=== PATIENT | female | born 1935 | race Caucasian/White ===

== ENCOUNTER → 2018-03-24 | Outpatient (CLI) | payer MEDICARE, BC ==
[~2018-03-24] MED LIST: ACTONEL35 MG PO; ASPIRIN81 M2 PO; ATORVASTATIN CA20 MG PO; BIOTIN2500 MCG PO; CALCIUM600 M1 PO; FISH OIL 1,2001 EAC5 PO; GLUCOSAMINE H1500 MG; GLUCOSAMINE1000 MG PO; LYRICA75 MG PO; PANTOPRAZOLE SO40 MG PO; TIZANIDINE HCL4 M1 PO; VITAMIN C1000 MG PO; VITAMIN D-32000 UNIT PO; XARELTO10 MG PO; Z CRANBERRY PO; Z GLUCOSAMINE PO; Z.0.CENTRUM SILVER1 PO; Z.0.LYRICA200 MG PO; Z.0.MAGNESIUM250 MG PO; Z.0.MELOXICAM7.5 MG PO; Z.0.METOPROLOL SUCC2 PO; Z.0.SAVELLA50 MG PO; Z.0.SPIRONOLACTONE25 PO; Z.0.VITAMIN D1000 UN PO; [UNRECOGNIZED DRUG - OTHER] PO
--- NOTE | 2018-03-24 19:47 | Diagnostic Imaging Report ---
Examination: MRI SPINE THORACIC WITHOUT CONTRAST History: Back pain. Comparison studies: None Technique: Sagittal T1 and STIR; axial, sagittal and coronal T2 Intravenous contrast: None. Findings: Alignment: Normal kyphosis. No scoliosis. Thoracic cord: Normal in signal and morphology. The tip of the conus is at L1. Soft tissues: No T2 hyperintense inflammatory changes. Paraspinal muscles: Diffuse atrophy presumably from disuse. Vertebrae: No compression fractures, infection or neoplasm of the C4-T2 vertebrae. There is prior posterior fixation from T3 through L1. There is artifact from the hardware imaging evaluation of the cord and thecal sac. Degenerative changes: This is not able to be evaluated due to the hardware artifact. IMPRESSION: Posterior fixation of the thoracic spine. Hardware results in artifact limiting evaluation of the canal and its contents. Signed by: Dr. Carlene Markham M.D. on 03/24/2018 7:44 PM
--- NOTE | 2018-03-26 19:46 | Diagnostic Imaging Report ---
History: Pain Comparison studies: None Technique: Sagittal T1, T2 and IR, axial T2, T2 and gradient echo the cervical spine. T1, T2 and STIR, coronal and axial T2 thoracic spine Intravenous contrast: None Findings: Alignment: Slightly increased cervical lordosis. Normal thoracic kyphosis.No scoliosis. Cervicomedullary junction: No abnormalities. Patent foramen magnum. Soft tissues: No T2 hyperintense inflammatory changes. Postsurgical changes: Patient status post extensive thoracic posterolateral fusion. Hardware artifact prevent adequate evaluation of the spinal canal and of the spinal cord. Spinal cord: Normal in size and signal from the foramen magnum through the midthoracic region. Cannot adequately evaluate the cord or the canal from the mid thoracic region to the approximate location of the tip of the conus at T12-L1. Vertebrae: Normal in height and signal intensity in the cervical region. Grossly normal in height and thoracic region. No fractures, infection or neoplasm. Cervical degenerative changes: C2-C3: No abnormalities. C3-C4: Mildly degenerated disc. Moderate bilateral foraminal stenosis, right greater than left due to uncoarthrosis. Mild spinal canal stenosis due to a disc osteophyte complex. No disc herniation. C4-C5: Moderately degenerated disc. Severe bilateral foraminal stenosis due to uncoarthrosis. Moderate spinal canal stenosis due to a disc osteophyte complex. No disc herniation. C5-C6: Mildly degenerated disc. Moderate bilateral foraminal stenosis due to uncoarthrosis. Mild spinal canal stenosis due to a disc osteophyte complex. No disc herniation. C6-C7: Mildly degenerated disc. Foraminal stenosis, severe right, moderate left due to uncoarthrosis. Mild spinal canal stenosis due to a disc osteophyte. No disc herniation. C7-T1: No abnormalities. Thoracic degenerative changes: Patent spinal canal from T1 to approximately T7. Not possible to evaluate from T8 to approximately T11 to artifacts. Grossly patent to the tip of the conus at T12-L1. IMPRESSION: Cervical spine: 1. Degenerated discs from C3 to C7, worse at C4-5. 2. Degenerative spinal canal stenosis also from C3 to C7, is worse (moderate) at C5-6. 3. Significant foraminal stenosis from C3 to C7 is worse (severe) at C4-5 and on the right at C6-7. 4. No disc herniations. Thoracic spine: 1. Suboptimal study due to hardware artifacts from a posterolateral fusion throughout the thoracic region. 2. No gross fractures or spinal canal stenosis in spite of the artifact. 3. Cannot further evaluate. Signed by: Dr. Del Martinez M.D. on 03/26/2018 7:42 PM
== END ==
LOC: MRI 13:19
PROVIDERS: ATTEND Orthopaedic Surgery
DX: M54.2 Cervicalgia (principal); M54.6 Pain in thoracic spine
CPT/HCPCS: 72141; 72146

== ENCOUNTER → 2019-04-28 | Day surgery (SDC) | payer MEDICARE, BC ==
[2019-04-24 14:24] LABS: BASOPHILS % 0.6 % (0.0-1.0); EOSINOPHILS # (AUTO) 0.1 (0.0-0.4); EOSINOPHILS % 1.1 % (0.0-6.0); HEMATOCRIT 39.8 % (34.2-44.1); HEMOGLOBIN 12.4 g/dL (12.0-16.0); LYMPHOCYTES # (AUTO) 2.5 (1.0-3.2); LYMPHOCYTES % 37.6 % (18.0-39.1); MEAN CORPUSCULAR HEMOGLOBIN 24.9 pg (28-32); MEAN CORPUSCULAR HGB CONC 31.2 g/dL (31-35); MEAN CORPUSCULAR VOLUME 80.1 fL (81-99); MONOCYTES # (AUTO) 0.5 (0.2-0.8); NEUTROPHILS # (AUTO) 3.5 (2.1-6.9); NEUTROPHILS % 52.5 % (38.7-80.0); PLATELET COUNT 209 x10e3/uL (140-360); RED BLOOD COUNT 4.97 x10e6/uL (3.6-5.1); RED CELL DISTRIBUTION WIDTH 19.7 % (11.7-14.4)
[~2019-04-28] MED LIST changes: +COCONUT OIL1000 MG PO; +FENTANYL CITRATE/PF 100MCG/2 ML INJ ONE; +HYOSCYAMINE 0.125 MG TAB ONE; +MIDAZOLAM HCL 2 MG/2 ML VIAL ONE; +SIMETHICONE 40 MG/0.6 ML BTL ONE; +TYLENOL ARTHRITIS PO
[2019-04-28 09:35] VITALS: BP 125/86
--- NOTE | 2019-04-28 10:58 | Operative Report ---
DATE OF PROCEDURE: 04/28/2019 SURGEON: Jim Magaña MD PROCEDURES: 1. Esophagogastroduodenoscopy with biopsies. 2. Colonoscopy with polypectomy. INDICATIONS FOR EGD: Anemia, bloating. INDICATIONS FOR COLONOSCOPY: Surveillance colonoscopy, personal history of colon polyps, and anemia. MEDICATIONS: The patient was done under MAC, please see anesthesiologist's note. PROCEDURE IN DETAIL: With the patient in left lateral decubitus position, a flexible fiberoptic Olympus gastroscope was introduced into the esophagus under direct visualization without any difficulty. There was a minute tongue of velvety red mucosa noted to extend proximally from the GE junction and biopsies were obtained to rule out Silverio's. The scope was then advanced with ease into the stomach. Mucosa overlying the antrum and the body revealed some patchy areas of erythema and low grade to moderate edema. Several gastric ulcers were noted in the antrum up to 4 mm in size without active bleeding or stigmata of recent hemorrhage, biopsies were obtained. The pylorus was of normal contour and shape, it was intubated with ease and the scope was advanced all the way to the second portion of the duodenum. The scope was then withdrawn slowly and biopsies were obtained from the second portion of the duodenum as well as the duodenal bulb to rule out sprue. The scope was then withdrawn back into the stomach and retroflexed. Mucosa overlying the fundus and the cardia appeared to be within normal limits. The scope was then straightened out. The stomach was decompressed. The scope was subsequently withdrawn. The patient tolerated the procedure well. IMPRESSION: 1. Rule out Silverio esophagus. 2. Gastritis. 3. Gastric ulcers up to 4 mm in size without active bleeding or stigmata of recent hemorrhage. 4. Rule out sprue. PLAN: Follow up histology. Initiate Protonix 40 mg one p.o. q.a.m. a.c. The patient was then turned around and after adequate lubrication of the anal canal, a flexible fiberoptic Olympus colonoscope was inserted into the rectum with ease and advanced all the way to the cecum. The scope was then withdrawn slowly. Mucosa overlying the cecum, ascending colon, and transverse colon appeared to be within normal limits. Diverticular disease was noted to involve the distal descending and the sigmoid colon. Three polyps were hot biopsied from the sigmoid colon. Four polyps were hot biopsied from the rectum. The scope was then retroflexed into the distal rectum and small internal hemorrhoids were noted, none of which was actively bleeding. The scope was then straightened out, it was subsequently withdrawn. The patient tolerated the procedure well. IMPRESSION: 1. Diverticulosis. 2. Sigmoid colon polyps x3, hot biopsied. 3. Rectal polyps x4, hot biopsied. 4. Internal hemorrhoids, none actively bleeding. PLAN: Follow up histology. Initiate high-fiber, low-fat diet. Initiate high-fiber supplement. Timing of followup colonoscopy pending pathology report. Jim Magaña MD [facility]L /[id number] cc: Thai Davey MD
--- OUTSIDE RECORDS SUMMARY | 2019-04-28 11:17 | XMS REPORT | Clinical Summary ---
Author Author [facility] Organization [facility] Address Unknown Phone Unavailable Care Team Providers Care Apartment Locator Name Role Phone Geronimo Carter MD PCP Allergies Comments Active Allergy Reactions Severity Noted Date Cephalosporins Anaphylaxis High 02/05/2019 Codeine GI High 02/05/2019 Intolerance Morphine GI High 02/05/2019 Intolerance Penicillins Rash Low 02/05/2019 Medications End Date Status Medication Sig Dispensed Refills Start Date Active spironolactone Take 25 mg by 0 (ALDACTONE) 25 MG tablet mouth daily. Taking only 1/2 tablet daily Active atorvastatin (LIPITOR) 20 Take 20 mg by 0 MG tablet mouth daily. Default OP ins Active rivaroxaban (XARELTO) 15 Take 15 mg by 0 mg tablet mouth. Active risedronate (ACTONEL) 35 Take 35 mg by 0 MG tablet mouth every 7 days. with water on empty stomach, nothing by mouth or lie down for next 30 minutes. Active pregabalin (LYRICA) 150 Take 150 mg 0 MG capsule by mouth 2 (two) times a day. Active tiZANidine (ZANAFLEX) 4 Take 4 mg by 0 MG tablet mouth daily. Active vit B comp Take 1 tablet 0 no.5-nvene-D-biotin by mouth (NEPHRO-MICHELLE RX) 1-60-300 daily. mg-mg-mcg tablet Active biotin 5,000 mcg Take 5,000 0 tablet,disintegrating mcg by mouth daily. Active CALCIUM ACETATE ORAL Take 630 mg 0 by mouth daily. Active multivit-min/iron/folic/l Take 1 tablet 0 utein (CENTRUM SILVER by mouth WOMEN ORAL) daily. Active magnesium oxide 250 mg Take 250 mg 0 magnesium tablet by mouth daily. Active coconut oil 1,000 mg Take 2 0 capsule tablets by mouth daily. Active gluc jean/chondro jean A/vit Take 2 0 C/Mn (GLUCOSAMINE 1500 tablets by COMPLEX ORAL) mouth daily. Active acetaminophen (TYLENOL) Take 650 mg 0 325 MG tablet by mouth 2 (two) times a day. 02/06/2019 Discontinued spironolactone Take 12.5 mg 0 (ALDACTONE) 25 MG tablet by mouth daily. 02/06/2019 Discontinued atorvastatin (LIPITOR) 20 Take 20 mg by 0 MG tablet mouth nightly. Default OP ins 02/06/2019 Discontinued rivaroxaban (XARELTO) 15 Take 15 mg by 0 mg tablet mouth nightly. 02/06/2019 Discontinued risedronate (ACTONEL) 35 Take 35 mg by 0 MG tablet mouth every 7 days. with water on empty stomach, nothing by mouth or lie down for next 30 minutes. 02/06/2019 Discontinued pregabalin (LYRICA) 100 Take 150 mg 0 MG capsule by mouth 2 (two) times a day. 02/06/2019 Discontinued tiZANidine (ZANAFLEX) 4 Take 4 mg by 0 MG tablet mouth every evening. 02/16/2019 Discontinued ASCORBIC ACID, VITAMIN C, Take 5,000 mg 0 ORAL by mouth daily. 02/16/2019 Discontinued calcium carbonate-vitamin Take 5,000 0 D3 1,000 mg(2,500 mg)-800 tablets by unit tablet mouth daily. 02/21/2019 ciprofloxacin (CIPRO) 500 Take 1 tablet 10 tablet 0 201 MG tablet (500 mg 9 total) by mouth every 12 (twelve) hours for 5 days. Active Problems Problem Noted Date Sick sinus syndrome 02/15/2019 Encounters Care Team Description Date Type Specialty Chris Apodaca MD EP PACEMAKER INSERTION NEW OR REPLACEMENT [55502 (CPT)] 02/15/2019 Surgery Procedural Cardiology Chris Apodaca MD Sick sinus syndrome (HCC) 02/15/2019 Hospital Cardiology - Encounter 02/16/2019 Osman Vega Back pain, unspecified back location, unspecified back pain laterality, unspecified chronicity (Primary Dx) 10/23/2018 Office Visit Orthopedic Surgery after 04/27/2018 Social History Date Tobacco Use Types Packs/Day Years Used Never Smoker Smokeless Tobacco: Never Used Sex Assigned at Date Recorded Not on file Industry Job Start Date Occupation Not on file Not on file Not on file Travel End Travel History Travel Start No recent travel history available. Last Filed Vital Signs Time Taken Vital Sign Reading 02/16/2019 8:45 AM CDT Blood Pressure 133/60 02/16/2019 8:45 AM CDT Pulse 60 02/16/2019 3:15 AM CDT Temperature 36.3 C (97.4 F) 02/16/2019 8:45 AM CDT Respiratory Rate 20 02/16/2019 8:45 AM CDT Oxygen Saturation 95% - Inhaled Oxygen - Concentration 02/15/2019 7:51 AM CDT Weight 72.2 kg (159 lb 1 oz) 02/15/2019 7:51 AM CDT Height 162.6 cm (5' 4") 02/15/2019 7:51 AM CDT Body Mass Index 27.3 Plan of Treatment Care Team Description Date Type Specialty Gary Osman TeshaJames [address] [place] [address] [place] [id number] 07/23/2019 Office Visit Orthopedic Surgery Health Maintenance Due Date Last Done Comments SHINGLES VACCINES (#1) 1987 65+ PNEUMOCOCCAL VACCINE 2002 07/18/2010 (2 of 2 - PPSV23) INFLUENZA VACCINE 05/17/2019 07/15/2015, 08/13/2014, 07/17/2013, Additional history exists Implants Device Identifier Shelf Expiration Date Model / Serial / Lot Implanted Type Area Manufactur er [id number] / / Glenny Xt Sr Mri - [id number] Cardiac N/A: N/A [employer] Implanted: Qty: 1 on 02/15/2019 by Pacemaker CRM [facility], Chris Apodaca MD [employer] 11/16/2020 LEAD [id number] / [id number] / [id number] Lead Pace Trnsvns Actv-Fxtn Atrl Cardiac N/A: N/A [employer] Satya Bipolar 52cm - [id number] Pacing [place] - Implanted: 02/15/2019 (Quantity not Leads or CARDIAC on file) Electrodes RYHTYM or MGMT Accessorie s Procedures Comments Procedure Name Priority Date/Time Associated Diagnosis ECG PRE/POST OP Routine 02/16/2019 3:06 AM CDT XR CHEST 1 VW PORTABLE Routine 02/15/2019 4:11 PM CDT ECG PRE/POST OP Routine 02/15/2019 3:14 PM CDT CV VENOGRAPHY EXTREMITY Routine 02/15/2019 Sick sinus syndrome (HCC) BILATERAL 2:40 PM CDT EP PACEMAKER INSERTION Routine 02/15/2019 Sick sinus syndrome (HCC) NEW OR REPLACEMENT 2:40 PM CDT ESTIMATED GFR STAT 02/15/2019 8:10 AM CDT BASIC METABOLIC PANEL STAT 02/15/2019 8:10 AM CDT PARTIAL THROMBOPLASTIN STAT 02/15/2019 TIME (PTT) 8:10 AM CDT PROTHROMBIN TIME WITH INR STAT 02/15/2019 8:10 AM CDT HC COMPLETE BLD COUNT STAT 02/15/2019 W/AUTO DIFF 8:10 AM CDT ECG 12-LEAD STAT 02/15/2019 8:04 AM CDT XR SPINE SCOLIOSIS 2-3 Routine 10/23/2018 Back pain, unspecified VIEWS 1:40 PM [employer] back location, unspecified back pain laterality, unspecified chronicity after 04/27/2018 Results * ECG Pre/Post Op (02/16/2019 3:06 AM CDT) Only the most recent of 2 results within the time period is included. Ventricular 60 [facility] rate Atrial rate 131 [facility] QRSD interval 156 [facility] QT interval 502 [facility] QTC interval 502 [facility] QRS axis 1 -89 [facility] T wave axis 17 [facility] EKG impression Ventricular-paced [facility] MUSE rhythm-Abnormal ECG-In automated comparison with ECG of 15-FEB-2019 15:14,-Vent. rate has decreased BY 10 BPM- Specimen Narrative Performed At Performing Organization Address City/State/Zipcode Phone Number [facility] [address] [place] [address] * XR Chest 1 Vw Portable (02/15/2019 4:11 PM CDT) Specimen Narrative Performed At Examination:XR CHEST 1 VW PORTABLE [facility] Clinical history:"pacemaker insertion" Comparison:11/19/2015 IMPRESSION: Cardiac pacer is again seen. There are no new alveolar opacities within either lung.No pneumothoraces are identified. The cardiomediastinal silhouette is enlarged and unchanged. The bones of the chest are osteopenic. Right humeral anchors are present. [facility]-[id number] Procedure Note Interface, Radiology Results Incoming - 02/15/2019 4:32 PM CDT Examination: XR CHEST 1 VW PORTABLE Clinical history: "pacemaker insertion" Comparison: 11/19/2015 IMPRESSION: Cardiac pacer is again seen. There are no new alveolar opacities within either lung. No pneumothoraces are identified. The cardiomediastinal silhouette is enlarged and unchanged. The bones of the chest are osteopenic. Right humeral anchors are present. [facility]-[id number] Performing Organization Address City/[facility]/Zipcode Phone Number [facility] [address] [place] [address] * Cv invasive peripheral vascular procedure (02/15/2019 2:40 PM CDT) Specimen Narrative Performed At [facility] Sterile technique , 1 % xylocaine Left subclavian vein entered with assistance of venography, wire retained Subcu pocket created for pacemaker with sharp and blunt dissection. Pocket flushed with ATB soln. and packed with gauze Left subclavian vein entered a second time and wire retained Sheaths placed over wires and leads placed via sheaths RVlead in RV , RA lead in RAA Appropriate sensing and pacing confirmed Leads sewn in place Gauze removed from pocket Generator attached to leads Generator and leads placed in pocket. Generator sewn in place Pocket closed with deep interrupted sutures and the running subcu suture used to close incision. Incision dressed Patient to recovery in stable condition Performing Organization Address [facility] Phone Number [facility] [address] [place] [address] * Cv electrophysiology procedure (02/15/2019 2:40 PM CDT) Specimen Narrative Performed At [facility] Sterile technique , 1 % xylocaine Left subclavian vein entered with assistance of venography, wire retained Subcu pocket created for pacemaker with sharp and blunt dissection. Pocket flushed with ATB soln. and packed with gauze Left subclavian vein entered a second time and wire retained Sheaths placed over wires and leads placed via sheaths RVlead in RV , RA lead in RAA Appropriate sensing and pacing confirmed Leads sewn in place Gauze removed from pocket Generator attached to leads Generator and leads placed in pocket. Generator sewn in place Pocket closed with deep interrupted sutures and the running subcu suture used to close incision. Incision dressed Patient to recovery in stable condition Performing Organization Address [facility] Phone Number [facility] [address] [place] [address] * Estimated GFR (02/15/2019 8:10 AM CDT) Estimated GFR 82 mL/min/1.73 m2 [place] Comment: [facility] rpretation G1 >=90 Normal or high G2 60-89Mildly decreased [id number] Mildly to moderately decreased [id number] Moderately to severely decreased G4 15-29Severely decreased G5 <15Kidney failure The eGFR was calculated using the Chronic Kidney Disease Epidemiology Collaboration (CKD-EPI) equation. Interpretation is based on recommendations of the National Kidney Foundation-Kidney Disease Outcomes Quality Initiative (NKF-KDOQI) published in 2014. Specimen Plasma specimen Performing Organization Address [facility]/Zipcode Phone Number [facility] DEPARTMENT OF [address] [place] [id number] PATHOLOGY AND GENOMIC MEDICINE [place] [facility] * Partial thromboplastin time, activated (02/15/2019 8:10 AM CDT) PTT 36.2 (H) 23.0 - 36.0 sec [place] Comment: [facility] PTT therapeutic range for HOSPITAL unfractionated heparin is 61.0-112.0 seconds which corresponds to Anti-Xa 0.3-0.7 U/ml. Specimen Blood Performing Organization Address City/State/Zipcode Phone Number [facility] DEPARTMENT OF [address] [place] [address] PATHOLOGY AND GENOMIC MEDICINE [address] * Prothrombin time with INR (02/15/2019 8:10 AM CDT) Pathologist [facility] Prothrombin 14.6 (H) 11.5 - 14.5 sec [facility] INR 1.2 [place] Comment: [facility] The International Normalized HOSPITAL Ratio (INR) is a therapeutic monitoring tool for patients who are stable on oral anticoagulant therapy. An INR of 2.0-3.0 is suggested for deep vein thrombosis/pulmonary embolism. Specimen Blood Performing Organization Address City/[facility] Phone Number [facility] [address] PATHOLOGY AND GENOMIC MEDICINE [address] * CBC with platelet and differential (02/15/2019 8:10 AM CDT) [facility] WBC 5.39 4.50 - 11.00 k/uL [facility] RBC 4.83 4.20 - 5.50 m/uL [facility] HGB 11.0 (L) 12.0 - 16.0 g/dL [facility] HCT 37.0 37.0 - 47.0 % [facility] MCV 76.6 (L) 82.0 - 100.0 fL [facility] MCH 22.8 (L) 27.0 - 34.0 pg [facility] MCHC 29.7 (L) 31.0 - 37.0 g/dL [facility] RDW - SD 63.4 (H) 37.0 - 55.0 fL [facility] MPV 9.9 8.8 - 13.2 fL [facility] Platelet count 205 150 - 400 k/uL [facility] Nucleated RBC 0.00 /100 WBC [facility] Neutrophils 52.4 39.0 - 69.0 % [facility] Lymphocytes 38.0 25.0 - 45.0 % [facility] Monocytes 7.2 0.0 - 10.0 % [facility] Eosinophils 1.5 0.0 - 5.0 % [facility] Basophils 0.7 0.0 - 1.0 % [facility] Immature 0.2Comment: "Immature 0.0 - 1.0 % [place] granulocytes granulocytes" (promyelocytes, [facility] myelocytes, metamyelocytes) HOSPITAL Specimen Blood Performing Organization Address City/[facility] Phone Number [facility] [address] PATHOLOGY AND GENOMIC MEDICINE [address] * Basic metabolic panel (02/15/2019 8:10 AM CDT) [facility] Sodium 141 135 - 148 mEq/L [facility] Potassium 4.2 3.5 - 5.0 mEq/L [facility] Chloride 105 98 - 112 mEq/L [facility] CO2 24 24 - 31 mEq/L [facility] Anion gap 12@ANIO 7 - 15 mEq/L [facility] BUN 16 8 - 23 mg/dL [facility] Creatinine 0.67 0.50 - 0.90 mg/dL [facility] Glucose 88 65 - 99 mg/dL [facility] Calcium 9.1 8.8 - 10.2 mg/dL [facility] Specimen Plasma specimen Performing Organization Address City/[facility] Phone Number [facility] [address] PATHOLOGY AND [facility] MEDICINE [address] * ECG 12 lead (02/15/2019 8:04 AM CDT) Ventricular 52 [facility] rate Atrial rate 340 [facility] QRSD interval 84 [facility] QT interval 454 [facility] QTC interval 422 [facility] QRS axis 1 -54 [facility] T wave axis 15 [facility] EKG impression Atrial fibrillation with slow [facility] ventricular response-Left anterior fascicular block-Inferior infarct (cited on or before 20-AUG-2014)-Anterior infarct (cited on or before 20-AUG-2014)-Abnormal ECG-In automated comparison with ECG of 11-NOV-2014 09:56,-Atrial fibrillation has replaced Atrial flutter- Specimen Narrative Performed At Performing Organization Address [facility]/Zipcode Phone Number [facility] MUSE [address] [place] [address] * XR Spine Scoliosos 2-3 Views (10/23/2018 1:40 PM [employer] INST[employer]ER) Specimen Narrative Performed At [facility] PA and lateral of the entire spine were done.They show that she has instrumentation in place from T4 to the sacrum and pelvis.She does have a fracture between L4 and S1 on the left side of her primary karina.It has not moved.She does have a satellite karina that appears to still be intact. 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 Performing Organization Address [facility]/Zipcode Phone Number [facility] [address] [place] [address] after 04/27/2018 Insurance Type Payer Benefit Subscriber ID Effective Phone Address Plan / Dates Group Medicare MEDICARE MEDICARE xxxxxxxxxxx 2002- J[place], PART A AND Present [place] B PPO BCBS BCBS xxxxxxxxx [id number] CHOICE resent PPO/CHARLENE HEMPHILL PPO Advance Directives Patient has advance care planning documents on file. For more information, bruce chaudhry contact: Javier Lira [address] [place] [address]
--- OUTSIDE RECORDS SUMMARY | 2019-04-28 11:18 | XMS REPORT ---
Author Author [facility] Address Unknown Phone Unavailable Care Team Providers Care Staff Attorney Name Role Phone Tesha HUGGINS Unavailable Unavailable Problems This patient has no known problems. Allergies, Adverse Reactions, Alerts This patient has no known allergies or adverse reactions. Medications This patient has no known medications. Results Test Description Test Time Test Comments Text Results Atomic Results Result Comments MRI SPINE THORACIC WO 2018-03-24 19:38:00 [place] [address] Patient Name: FANNY BALDERRAMA MR #: [id number] : 1935 Age/Sex: 82/F Req #: [id number] [facility] Physician: Ordered by: SAMM HUGGINS MD Report #: [id number] Location: MRI Room/Bed: Procedure: [id number] MRI/MRI SPINE THORACIC WO Exam Date: Exam Time: REPORT STATUS: Signed Examination: MRI SPINE THORACIC WITHOUT CONTRAST History: Back pain. Comparison studies: None Technique: Sagittal T1 and STIR; axial, sagittal and coronal T2 Intravenous contrast: None. Findings: Alignment: Normal kyphosis. No scoliosis. Thoracic cord: Normal in signal and morphology. The tip of the conus is at L1. Soft tissues: No T2 hyperintense inflammatory changes. Paraspinal muscles: Diffuse atrophy presumably from disuse. Vertebrae: No compression fractures, infection or neoplasm of the C4-T2 vertebrae. There is prior posterior fixation from T3 through L1. There is artifact from the hardware imaging evaluation of the cord and thecal sac. Degenerative changes: This is not able to be evaluated due to the hardware artifact. IMPRESSION: Posterior fixation of the thoracic spine. Hardware results in artifact limiting evaluation of the canal and its contents. Signed by: Dr. Carlene Markham M.D. on 03/24/2018 7:44 PM Dictated By: CARLENE SHIRLEY MD 43 Transcribed By: TRAMAINE on 03/24/181943 COPY TO: SAMM HUGGINS MD MRI SPINE CERVICAL WO 2018-03-24 16:32:00 [place] [address] Patient Name: FANNY BALDERRAMA MR #: [id number] : 1935 Age/Sex: 82/F Req #: [id number] Adm Physician: Ordered by: SAMM HUGGINS MD Report #: [id number] Location: MRI Room/Bed: Procedure: [id number] MRI/MRI SPINE CERVICAL WO Exam Date: Exam Time: REPORT STATUS: Signed History: Pain Comparison studies: None Technique: Sagittal T1, T2 and IR, axial T2, T2 and gradient echo the cervical spine. T1, T2 and STIR, coronal and axial T2 thoracic spine Intravenous contrast: None Findings: Alignment: Slightly increased cervical lordosis. Normal thoracic kyphosis.No scoliosis. Cervicomedullary junction: No abnormalities. Patent foramen magnum. Soft tissues: No T2 hyperintense inflammatory changes. Postsurgical changes: Patient status post extensive thoracic posterolateral fusion. Hardware artifact prevent adequate evaluation of the spinal canal and of the spinal cord. Spinal cord: Normal in size and signal from the foramen magnum through the midthoracic region. Cannot adequately evaluate the cord or the canal from the mid thoracic region to the approximate location of the tip of the conus at T12-L1. Vertebrae: Normal in height and signal intensity in the cervical region. Grossly normal in height and thoracic region. No fractures, infection or neoplasm. Cervical degenerative changes: C2-C3: No abnormalities. C3-C4: Mildly degenerated disc. Moderate bilateral foraminal stenosis, right greater than left due to uncoarthrosis. Mild spinal canal stenosis due to a disc osteophyte complex. No disc herniation. C4-C5: Moderately degenerated disc. Severe bilateral foraminal stenosis due to uncoarthrosis. Moderate spinal canal stenosis due to a disc osteophyte complex. No disc herniation. C5-C6: Mildly degenerated disc. Moderate bilateral foraminal stenosis due to uncoarthrosis. Mild spinal canal stenosis due to a disc osteophyte complex. No disc herniation. C6-C7: Mildly degenerated disc. Foraminal stenosis, severe right, moderate left due to uncoarthrosis. Mild spinal canal stenosis due to a disc osteophyte. No disc herniation. C7-T1: No abnormalities. Thoracic degenerative changes: Patent spinal canal from T1 to approximately T7. Not possible to evaluate from T8 to approximately T11 to artifacts. Grossly patent to the tip of the conus at T12-L1. IMPRESSION: Cervical spine: 1. Degenerated discs from C3 to C7, worse at C4-5. 2. Degenerative spinal canal stenosis also from C3 to C7, is worse (moderate) at C5-6. 3. Significant foraminal stenosis from C3 to C7 is worse (severe) at C4-5 and on the right at C6-7. 4. No disc herniations. Thoracic spine: 1. Suboptimal study due to hardware artifacts from a posterolateral fusion throughout the thoracic region. 2. No gross fractures or spinal canal stenosis in spite of the artifact. 3. Cannot further evaluate. Signed by: Dr. Del Martinez M.D. on 03/26/2018 7:42 PM Dictated By: DEL MARTINEZ MD, MD 41 Transcribed By: TRAMAINE on 03/26/181941 COPY TO: SAMM HUGGINS MD
--- OUTSIDE RECORDS SUMMARY | 2019-04-30 15:16 | XMS REPORT | Clinical Summary ---
Author Author [facility] Address Unknown Phone Unavailable Care Team Providers Care Tender Coordinator Name Role Phone Geronimo Carter MD PCP [...] vit B comp Take 1 tablet 0 no.8-qfrqm-P-biotin by mouth (NEPHRO-MICHELLE RX) 1-60-300 daily. mg-mg-mcg [...] MD EP PACEMAKER INSERTION NEW OR REPLACEMENT [63523 (CPT)] 02/15/2019 Surgery Procedural Cardiology Chris Apodaca MD Sick sinus syndrome (HCC) 02/15/2019 Hospital Cardiology - Encounter 02/16/2019 Osman Vega Back pain, unspecified back location, unspecified back pain laterality, unspecified chronicity (Primary Dx) 10/23/2018 Office Visit Orthopedic Surgery after 04/29/2018 Social History Date Tobacco Use Types Packs/Day [...] Description Date Type Specialty Gary Osman TeshaJames [address] [place] [address] [place] [id number] 07/23/2019 Office Visit Orthopedic Surgery Health Maintenance Due Date Last Done Comments SHINGLES VACCINES (#1) 1987 65+ PNEUMOCOCCAL VACCINE 2002 07/18/2010 (2 of 2 - PPSV23) INFLUENZA VACCINE 05/17/2019 07/15/2015, 08/13/2014, 07/17/2013, Additional history exists Implants Device Identifier Shelf Expiration Date Model / Serial / Lot Implanted Type Area Manufactur er [id number] / / Glenny Xt Sr Mri - [id number] Cardiac N/A: N/A [employer] Implanted: Qty: 1 on 02/15/2019 by Pacemaker CRM [facility], Chris Apodaca MD [employer] 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 Ventricular 60 [facility] rate Atrial rate 131 [facility] QRSD interval 156 [facility] QT interval 502 [facility] QTC interval 502 [facility] QRS axis 1 -89 [facility] T wave axis 17 [facility] EKG impression Ventricular-paced [facility] MUSE rhythm-Abnormal ECG-In automated comparison with ECG of 15-FEB-2019 15:14,-Vent. rate has decreased BY 10 BPM- Specimen Narrative Performed At Performing Organization Address City/State/Zipcode Phone Number [facility] [address] [place] [address] * XR Chest 1 Vw Portable (02/15/2019 4:11 PM CDT) Specimen Narrative Performed At Examination:XR CHEST 1 VW PORTABLE [facility] Clinical history:"pacemaker insertion" Comparison:11/19/2015 IMPRESSION: Cardiac pacer is again seen. There are no new alveolar opacities within either lung.No pneumothoraces are identified. The cardiomediastinal silhouette is enlarged and unchanged. The bones of the chest are osteopenic. Right humeral anchors are present. [facility]-[id number] Procedure Note Interface, Radiology Results Incoming - 02/15/2019 4:32 PM CDT Examination: XR CHEST 1 VW PORTABLE Clinical history: "pacemaker insertion" Comparison: 11/19/2015 IMPRESSION: Cardiac pacer is again seen. There are no new alveolar opacities within either lung. No pneumothoraces are identified. The cardiomediastinal silhouette is enlarged and unchanged. The bones of the chest are osteopenic. Right humeral anchors are present. [facility]-[id number] Performing Organization Address City/[facility]/Zipcode Phone Number [facility] [address] [place] [address] * Cv invasive peripheral vascular procedure (02/15/2019 [...] recovery in stable condition Performing Organization Address [facility] Phone Number [facility] [address] [place] [address] * Cv electrophysiology procedure (02/15/2019 2:40 PM CDT) Specimen Narrative Performed At [facility] Sterile technique , 1 % xylocaine Left [...] recovery in stable condition Performing Organization Address [facility] Phone Number [employer] [address] [place] [address] * Estimated GFR (02/15/2019 8:10 AM CDT) Estimated GFR 82 mL/min/1.73 m2 [place] Comment: CAODAISM [facility] rpretation G1 >=90 Normal or high G2 60-89Mildly decreased A6d19-08 Mildly to moderately decreased X4b49-99 Moderately to severely decreased G4 15-29Severely decreased G5 <15Kidney failure The eGFR was calculated using the Chronic Kidney Disease Epidemiology Collaboration (CKD-EPI) equation. Interpretation is based on recommendations of the National Kidney Foundation-Kidney Disease Outcomes Quality Initiative (NKF-KDOQI) published in 2014. Specimen Plasma specimen Performing Organization Address [facility]/Zipcode Phone Number [facility] DEPARTMENT OF [address] [place] [address] PATHOLOGY AND GENOMIC MEDICINE [place] [address] * Partial thromboplastin time, activated (02/15/2019 8:10 AM CDT) PTT 36.2 (H) 23.0 - 36.0 sec [place] Comment: CAODAISM PTT therapeutic range for HOSPITAL unfractionated heparin is 61.0-112.0 seconds which corresponds to Anti-Xa 0.3-0.7 U/ml. Specimen Blood Performing Organization Address City/State/Zipcode Phone Number [facility] DEPARTMENT OF [address] [place] [address] PATHOLOGY AND GENOMIC MEDICINE [address] * Prothrombin time with INR (02/15/2019 8:10 AM CDT) Pathologist [facility] Prothrombin 14.6 (H) 11.5 - 14.5 sec [facility] INR 1.2 [place] Comment: CAODAISM The International Normalized HOSPITAL Ratio (INR) is a therapeutic monitoring tool for patients who are stable on oral anticoagulant therapy. An INR of 2.0-3.0 is suggested for deep vein thrombosis/pulmonary embolism. Specimen Blood Performing Organization Address City/[facility] Phone Number [facility] [place] [address] PATHOLOGY AND GENOMIC MEDICINE [address] * CBC with platelet and differential (02/15/2019 8:10 AM CDT) [facility] WBC 5.39 4.50 - 11.00 k/uL [facility] RBC 4.83 4.20 - 5.50 m/uL [facility] HGB 11.0 (L) 12.0 - 16.0 g/dL [facility] HCT 37.0 37.0 - 47.0 % [facility] MCV 76.6 (L) 82.0 - 100.0 fL [facility] MCH 22.8 (L) 27.0 - 34.0 pg [facility] MCHC 29.7 (L) 31.0 - 37.0 g/dL [facility] RDW - SD 63.4 (H) 37.0 - 55.0 fL [facility] MPV 9.9 8.8 - 13.2 fL [facility] Platelet count 205 150 - 400 k/uL [facility] Nucleated RBC 0.00 /100 WBC [facility] Neutrophils 52.4 39.0 - 69.0 % [facility] Lymphocytes 38.0 25.0 - 45.0 % [facility] Monocytes 7.2 0.0 - 10.0 % [facility] Eosinophils 1.5 0.0 - 5.0 % [facility] Basophils 0.7 0.0 - 1.0 % [facility] Immature 0.2Comment: "Immature 0.0 - 1.0 % [place] granulocytes granulocytes" (promyelocytes, CAODAISM myelocytes, metamyelocytes) HOSPITAL Specimen Blood Performing Organization Address City/[facility] Phone Number [facility] [place] [address] PATHOLOGY AND GENOMIC MEDICINE [address] * Basic metabolic panel (02/15/2019 8:10 AM CDT) [facility] Sodium 141 135 - 148 mEq/L [facility] Potassium 4.2 3.5 - 5.0 mEq/L [facility] Chloride 105 98 - 112 mEq/L [facility] CO2 24 24 - 31 mEq/L [facility] Anion gap 12@ANIO 7 - 15 mEq/L [facility] BUN 16 8 - 23 mg/dL [facility] Creatinine 0.67 0.50 - 0.90 mg/dL [facility] Glucose 88 65 - 99 mg/dL [facility] Calcium 9.1 8.8 - 10.2 mg/dL [facility] Specimen Plasma specimen Performing Organization Address City/[facility] Phone Number [facility] [place] [address] PATHOLOGY AND [facility] MEDICINE [address] * ECG 12 lead (02/15/2019 8:04 [...] Specimen Narrative Performed At Performing Organization Address [facility]/Zipcode Phone Number [facility] MUSE [address] [place] [address] * XR Spine Scol[place]os 2-3 Views (10/23/2018 1:40 PM HAZARDOUS MATERIAL TECHNICIAN) Specimen Narrative Performed At [facility] and [...] the last 2 years. Performing Organization Address [facility]/Zipcode Phone Number [facility] [address] [place] [address] after 04/29/2018 Insurance Type Payer Benefit Subscriber ID Effective Phone Address Plan / Dates Group Medicare MEDICARE MEDICARE xxxxxxxxxxx 2002- J[place]IER, PART A AND Present [place] PPO BCBS BCBS xxxxxxxxx [id number] CHOICE resent PPO/CHARLENE HEMPHILL PPO Advance Directives Patient has advance care planning documents on file. For more information, bruce chaudhry contact: Javier Lira [address] [place] [address]
== END | disposition home or self-care (01) ==
LOC: OR 06:00
PROVIDERS: ATTEND Internal Medicine Gastroenterology
DX: K29.70 Gastritis, unspecified, without bleeding (principal); K63.5 Polyp of colon; K62.1 Rectal polyp; K25.9 Gastric ulcer, unspecified as acute or chronic, without hemorrhage or perforation; K21.0 Gastro-esophageal reflux disease with esophagitis; K29.80 Duodenitis without bleeding; K57.30 Diverticulosis of large intestine without perforation or abscess without bleeding; K58.9 Irritable bowel syndrome, unspecified; K64.8 Other hemorrhoids; D64.9 Anemia, unspecified; I48.91 Unspecified atrial fibrillation; I34.1 Nonrheumatic mitral (valve) prolapse; H91.90 Unspecified hearing loss, unspecified ear; M81.0 Age-related osteoporosis without current pathological fracture; Z88.6 Allergy status to analgesic agent; Z88.1 Allergy status to other antibiotic agents; Z88.0 Allergy status to penicillin; Z01.812 Encounter for preprocedural laboratory examination; Z79.02 Long term (current) use of antithrombotics/antiplatelets; Z95.0 Presence of cardiac pacemaker
CPT/HCPCS: 36415; 43239; 45384; 85025; 88305; 88312; J2250; J3010

== ENCOUNTER 2019-11-26 10:00 | Outpatient (RCR) | payer MEDICARE, BC ==
[~2019-11-26 10:00] MED LIST changes: -FENTANYL CITRATE/PF 100MCG/2 ML INJ ONE; -HYOSCYAMINE 0.125 MG TAB ONE; -MIDAZOLAM HCL 2 MG/2 ML VIAL ONE; -SIMETHICONE 40 MG/0.6 ML BTL ONE
== END 2019-12-15 ==
LOC: PT 10:00
PROVIDERS: ATTEND Internal Medicine
DX: H81.10 Benign paroxysmal vertigo, unspecified ear (principal)

== ENCOUNTER → 2021-10-05 | Day surgery (SDC) | payer MEDICARE, BC ==
[2021-10-02 08:34] LABS: BASOPHILS # (AUTO) 0.1 (0.0-0.1); BASOPHILS % 0.8 % (0.0-1.0); EOSINOPHILS # (AUTO) 0.1 (0.0-0.4); EOSINOPHILS % 1.8 % (0.0-6.0); HEMATOCRIT 42.4 % (34.2-44.1); HEMOGLOBIN 13.1 g/dL (12.0-16.0); LYMPHOCYTES # (AUTO) 2.6 (1.0-3.2); LYMPHOCYTES % 42.7 % (18.0-39.1); MEAN CORPUSCULAR HEMOGLOBIN 28.4 pg (28-32); MEAN CORPUSCULAR HGB CONC 30.9 g/dL (31-35); MONOCYTES # (AUTO) 0.6 (0.2-0.8); MONOCYTES % 10.4 % (4.4-11.3); NEUTROPHILS # (AUTO) 2.7 (2.1-6.9); NEUTROPHILS % 44.1 % (38.7-80.0); PLATELET COUNT 167 x10e3/uL (140-360); RED BLOOD COUNT 4.61 x10e6/uL (3.6-5.1); RED CELL DISTRIBUTION WIDTH 14.2 % (11.7-14.4)
[~2021-10-05] MED LIST changes: +FENTANYL CITRATE/PF 100MCG/2 ML INJ ONE; +FEROSUL325 MG PO; +HYDROCHLOROTH12.5 MG; +LIDOCAINE HCL 2% LOCAL INJ 5 ML SDV VIAL INJ ONE; +METOPROLOL; +PROPOFOL IV EMULSION 10 MG/ML 20 ML VIAL ONE; +PROTONIX20 MG PO
[2021-10-05 08:15] VITALS: BP 123/73
== END | disposition home or self-care (01) ==
LOC: OR 08:06
PROVIDERS: ATTEND Internal Medicine Gastroenterology
DX: Z09 Encounter for follow-up examination after completed treatment for conditions other than malignant neoplasm (principal); K29.50 Unspecified chronic gastritis without bleeding; K22.89 Other specified disease of esophagus; I48.91 Unspecified atrial fibrillation; I34.1 Nonrheumatic mitral (valve) prolapse; M81.0 Age-related osteoporosis without current pathological fracture; N20.0 Calculus of kidney; Z88.6 Allergy status to analgesic agent; Z88.1 Allergy status to other antibiotic agents; Z88.0 Allergy status to penicillin; Z01.810 Encounter for preprocedural cardiovascular examination; Z01.812 Encounter for preprocedural laboratory examination; Z20.822 Contact with and (suspected) exposure to COVID-19; Z79.02 Long term (current) use of antithrombotics/antiplatelets; Z79.899 Other long term (current) drug therapy; Z95.0 Presence of cardiac pacemaker
CPT/HCPCS: 36415; 43239; 85025; 88305; 88312; 88342; 93005; J2001; J3010; U0002

== ENCOUNTER 2022-03-04 18:57 | Observation (INO) | payer MEDICARE, BC ==
[~2022-03-04] VITALS: Ht 162.6 cm; Wt 68.0 kg
[~2022-03-04 18:57] MED LIST changes: -FENTANYL CITRATE/PF 100MCG/2 ML INJ ONE; -LIDOCAINE HCL 2% LOCAL INJ 5 ML SDV VIAL INJ ONE; -PROPOFOL IV EMULSION 10 MG/ML 20 ML VIAL ONE
[2022-03-04 20:25] LABS: BASOPHILS % 0.5 % (0.0-1.0); HEMOGLOBIN 7.6 g/dL (12.0-16.0); LYMPHOCYTES # (AUTO) 2.1 (1.0-3.2); LYMPHOCYTES % 23.7 % (18.0-39.1); MEAN CORPUSCULAR HEMOGLOBIN 29.6 pg (28-32); MEAN CORPUSCULAR HGB CONC 30.4 g/dL (31-35); MEAN CORPUSCULAR VOLUME 97.3 fL (81-99); MONOCYTES # (AUTO) 0.5 (0.2-0.8); MONOCYTES % 5.9 % (4.4-11.3); NEUTROPHILS # (AUTO) 6.2 (2.1-6.9); NEUTROPHILS % 69.6 % (38.7-80.0); PLATELET COUNT 214 x10e3/uL (140-360); RED BLOOD COUNT 2.57 x10e6/uL (3.6-5.1); RED CELL DISTRIBUTION WIDTH 18.5 % (11.7-14.4)
[2022-03-04 20:44] LABS: ALANINE AMINOTRANSFERASE 11 IU/L (0-55); ALBUMIN 3.4 g/dL (3.5-5.0); ALBUMIN/GLOBULIN RATIO 1.2 (0.8-2.0); ALKALINE PHOSPHATASE 44 IU/L (40-150); ANION GAP 17.1 mmol/L (8-16); BLOOD UREA NITROGEN 42 mg/dL (7-26); BUN/CREATININE RATIO 58 (6-25); CALCIUM 8.5 mg/dL (8.4-10.2); CARBON DIOXIDE 22 mmol/L (22-29); CHLORIDE 108 mmol/L (98-107); CREATINE KINASE 104 IU/L (29-168); CREATININE, SERUM 0.73 mg/dL (0.57-1.11); EST GLOMERULAR FILTRATION RATE 76 ML/MIN (60-); GLUCOSE 120 mg/dL (74-118); POTASSIUM 4.1 mmol/L (3.5-5.1); SODIUM 143 mmol/L (136-145)
[2022-03-04] MEDS ORDERED: FUROSEMIDE INJ 10 MG/ML 4 ML VIAL IV ONE ×2 (20:45→23:30)
[2022-03-04] MEDS ORDERED: ACETAMINOPHEN 325 MG TAB PO STA (21:19)
[2022-03-04] MEDS ORDERED: SODIUM CHLORIDE 0.9% 250ML 250 ML IV ONE (21:30)
[2022-03-04] MEDS ORDERED: SODIUM CHLORIDE FLUSH 10 ML SYR INJ PRN (21:30)
[2022-03-04] MEDS ORDERED: ONDANSETRON HCL INJ 2MG/ML 2ML 2 MG/ML VIAL IV PRN (21:30)
[2022-03-04 22:44] LABS: CLARITY,URINE SL CLOUDY (CLEAR); COLOR,URINE YELLOW (YELLOW); KETONES,URINE 2+ (NEGATIVE); LEUKOCYTE ESTERASE ,URINE SMALL (NEGATIVE); NITRITE,URINE POSITIVE (NEGATIVE); PROTEIN,URINE DIPSTICK NEGATIVE (NEGATIVE); URINE UROBILINOGEN 0.2 mg/dL (0.2 - 1)
[2022-03-04 22:48] LABS: BACTERIA,URINE MANY /HPF; EPITHELIAL CELLS,URINE FEW /LPF; RBC,URINE 0-5 /HPF (0-5)
[2022-03-04] MEDS ORDERED: PREGABALIN 50 MG CAP PO ONE (23:00)
[2022-03-04] MEDS ORDERED: PREGABALIN 50 MG CAP ONE (23:04)
[2022-03-04] MEDS ORDERED: CIPROFLOXACIN 200 MG/D5W 100ML 100 ML IV SCH (23:30)
[2022-03-04] MEDS ORDERED: CIPROFLOXACIN 400 MG/D5W 200ML 200 ML IV SCH (23:30)
[2022-03-05 00:13] LABS: FERRITIN 114.73 ng/mL (4.63-204.00)
[2022-03-05] MEDS: FUROSEMIDE INJ 10 MG/ML 2 ML VIAL IV PRN ×2 (01:48→04:46)
[2022-03-05] MEDS ORDERED: TRAMADOL HCL 50 MG TAB PO ONE (02:00)
[2022-03-05 06:40] LABS: BASOPHILS % 0.6 % (0.0-1.0); EOSINOPHILS % 0.6 % (0.0-6.0); HEMATOCRIT 29.9 % (34.2-44.1); HEMOGLOBIN 9.5 g/dL (12.0-16.0); LYMPHOCYTES # (AUTO) 2.4 (1.0-3.2); LYMPHOCYTES % 34.5 % (18.0-39.1); MEAN CORPUSCULAR HEMOGLOBIN 30.5 pg (28-32); MEAN CORPUSCULAR HGB CONC 31.8 g/dL (31-35); MEAN CORPUSCULAR VOLUME 96.1 fL (81-99); MONOCYTES # (AUTO) 0.7 (0.2-0.8); MONOCYTES % 10.6 % (4.4-11.3); NEUTROPHILS # (AUTO) 3.7 (2.1-6.9); NEUTROPHILS % 53.4 % (38.7-80.0); PLATELET COUNT 172 x10e3/uL (140-360); RED BLOOD COUNT 3.11 x10e6/uL (3.6-5.1); RED CELL DISTRIBUTION WIDTH 17.3 % (11.7-14.4)
[2022-03-05 06:59] LABS: ALBUMIN 3.2 g/dL (3.5-5.0); ALBUMIN/GLOBULIN RATIO 1.2 (0.8-2.0); ANION GAP 11.1 mmol/L (8-16); CALCIUM 7.7 mg/dL (8.4-10.2); CREATININE, SERUM 0.67 mg/dL (0.57-1.11); POTASSIUM 3.1 mmol/L (3.5-5.1)
[2022-03-05 07:04] LABS: INR 1.17; PROTHROMBIN TIME 15.9 seconds (11.9-14.5)
[2022-03-05 07:05] LABS: PARTIAL THROMBOPLASTIN TIME 32.3 seconds (23.8-35.5)
[2022-03-05] MEDS ORDERED: PREGABALIN 50 MG CAP ONE (07:41)
[2022-03-05] MEDS ORDERED: POTASSIUM CHLORIDE 10MEQ EA PO ONE (08:00)
[2022-03-05] MEDS ORDERED: METOPROLOL SUCCINATE 25 MG TAB XL PO SCH (09:00)
[2022-03-05] MEDS ORDERED: FERROUS SULFATE 325 MG TAB PO SCH (09:00)
[2022-03-05] MEDS ORDERED: PREGABALIN 75 MG CAP PO SCH (09:00)
[2022-03-05] MEDS ORDERED: ATORVASTATIN 20 MG TAB PO SCH (21:00)
== END 2022-03-05 09:00 | disposition home or self-care (01) ==
LOC: ER 20:45 → ERHOLD 21:24
PROVIDERS: ADMIT Internal Medicine; ATTEND Internal Medicine
DX: K92.2 Gastrointestinal hemorrhage, unspecified (principal); D62 Acute posthemorrhagic anemia; T39.395A Adverse effect of other nonsteroidal anti-inflammatory drugs [NSAID], initial encounter; I50.32 Chronic diastolic (congestive) heart failure; I48.0 Paroxysmal atrial fibrillation; Z79.01 Long term (current) use of anticoagulants; N39.0 Urinary tract infection, site not specified; M17.12 Unilateral primary osteoarthritis, left knee; Z88.1 Allergy status to other antibiotic agents; Z88.5 Allergy status to narcotic agent; Z88.0 Allergy status to penicillin; Z20.822 Contact with and (suspected) exposure to COVID-19; N18.1 Chronic kidney disease, stage 1; I13.0 Hypertensive heart and chronic kidney disease with heart failure and stage 1 through stage 4 chronic kidney disease, or unspecified chronic kidney disease; R60.0 Localized edema; Z79.899 Other long term (current) drug therapy; G62.9 Polyneuropathy, unspecified
CPT/HCPCS: 36415 ×2; 71045; 80053 ×2; 81001; 82550; 82553; 82607; 82728; 82746; 82747; 83540; 83880; 84466; 84484; 85025 ×2; 85610; 85730; 86850; 86900; 86920; 87086; 87186; 93005; 99284; C9113; G0378 ×2; J0744; J1940 ×2; J2405; J7050; P9016 ×2; U0002

== ENCOUNTER → 2022-06-29 | Day surgery (SDC) | payer MEDICARE, BC ==
[2022-06-28 10:57] LABS: BASOPHILS # (AUTO) 0.1 (0.0-0.1); EOSINOPHILS # (AUTO) 0.1 (0.0-0.4); EOSINOPHILS % 1.9 % (0.0-6.0); HEMATOCRIT 43.2 % (34.2-44.1); HEMOGLOBIN 13.4 g/dL (12.0-16.0); LYMPHOCYTES # (AUTO) 2.2 (1.0-3.2); LYMPHOCYTES % 45.5 % (18.0-39.1); MEAN CORPUSCULAR HEMOGLOBIN 27.3 pg (28-32); MONOCYTES # (AUTO) 0.4 (0.2-0.8); MONOCYTES % 9.1 % (4.4-11.3); NEUTROPHILS % 42.3 % (38.7-80.0); PLATELET COUNT 164 x10e3/uL (140-360); RED BLOOD COUNT 4.91 x10e6/uL (3.6-5.1); RED CELL DISTRIBUTION WIDTH 16.7 % (11.7-14.4)
[2022-06-28 11:18] LABS: ALANINE AMINOTRANSFERASE 14 IU/L (0-55); ALBUMIN 3.9 g/dL (3.5-5.0); ALBUMIN/GLOBULIN RATIO 1.1 (0.8-2.0); ALKALINE PHOSPHATASE 84 IU/L (40-150); ANION GAP 15.3 mmol/L (8-16); BLOOD UREA NITROGEN 20 mg/dL (7-26); BUN/CREATININE RATIO 27 (6-25); CALCIUM 9.7 mg/dL (8.4-10.2); CARBON DIOXIDE 26 mmol/L (22-29); CHLORIDE 109 mmol/L (98-107); CREATININE, SERUM 0.73 mg/dL (0.57-1.11); GLUCOSE 92 mg/dL (74-118); POTASSIUM 4.3 mmol/L (3.5-5.1); SODIUM 146 mmol/L (136-145)
[~2022-06-29] VITALS: Ht 162.6 cm; Wt 77.1 kg
[2022-06-29] VITALS (10 sets, daily range): BP systolic 106–126; BP diastolic 54–64
[~2022-06-29] MED LIST changes: +BENZOCAINE 20% SPR 60 ML CAN ONE; +FENTANYL CITRATE/PF 100MCG/2 ML INJ ONE; +MIDAZOLAM HCL 2 MG/2 ML VIAL ONE; +SODIUM CHLORIDE 0.9% 1000ML 1,000 ML ONE
== END | disposition home or self-care (01) ==
LOC: CATH LAB 13:00
PROVIDERS: ATTEND Internal Medicine Interventional Cardiology
DX: I48.0 Paroxysmal atrial fibrillation (principal); I20.8 Other forms of angina pectoris; I25.2 Old myocardial infarction; I50.9 Heart failure, unspecified; I35.8 Other nonrheumatic aortic valve disorders; I34.0 Nonrheumatic mitral (valve) insufficiency; Z95.818 Presence of other cardiac implants and grafts; Z95.0 Presence of cardiac pacemaker; D64.9 Anemia, unspecified; J44.9 Chronic obstructive pulmonary disease, unspecified; Z88.6 Allergy status to analgesic agent; Z88.1 Allergy status to other antibiotic agents; Z88.0 Allergy status to penicillin; Z01.812 Encounter for preprocedural laboratory examination; Z20.822 Contact with and (suspected) exposure to COVID-19; Z79.02 Long term (current) use of antithrombotics/antiplatelets; Z79.899 Other long term (current) drug therapy; Z68.32 Body mass index [BMI] 32.0-32.9, adult
CPT/HCPCS: 0223U; 36415; 80053; 85025; 93320; 93325; C8925; J2250; J3010; J7030; 93307; 93312

== ENCOUNTER → 2023-11-08 | Day surgery (SDC) | payer MEDICARE, BC ==
[~2023-11-08] MED LIST changes: +ACETAMINOPHEN 1000 MG/100 ML 100 ML IV ONE; +ASPIRIN EC81 MG PO; -BENZOCAINE 20% SPR 60 ML CAN ONE; +DEXAMETHASONE SOD PHOS INJ 4 MG/ML SDV ONE; +FUROSEMIDE40 MG PO; +KETOROLAC TROMETHAMINE 30 MG/ML VIAL ONE; +LACTATED RINGER'S 1,000 ML ONE; +LIDOCAINE HCL 2% LOCAL INJ 5 ML SDV VIAL INJ ONE; -MIDAZOLAM HCL 2 MG/2 ML VIAL ONE; +ONDANSETRON HCL INJ 2MG/ML 2ML 2 MG/ML VIAL ONE; +PROPOFOL IV EMULSION 10 MG/ML 20 ML VIAL ONE; +SEVOFLURANE INHAL SOLN 250 ML PEN BTL ONE; -SODIUM CHLORIDE 0.9% 1000ML 1,000 ML ONE; +VITAMIN B COMP1 EACH PO; +vitamin b12 PO
[2023-11-08 12:09] VITALS: TEMP 98.8
[2023-11-08 13:45] VITALS: BP 148/80; PULSE 80; RESP 17; O2SAT 96
== END | disposition home or self-care (01) ==
LOC: OR 08:27
PROVIDERS: ATTEND Specialist
DX: G56.02 Carpal tunnel syndrome, left upper limb (principal); M65.312 Trigger thumb, left thumb; E78.5 Hyperlipidemia, unspecified; D64.9 Anemia, unspecified; Z88.6 Allergy status to analgesic agent; Z88.1 Allergy status to other antibiotic agents; Z88.0 Allergy status to penicillin; Z01.810 Encounter for preprocedural cardiovascular examination; Z01.818 Encounter for other preprocedural examination; Z79.82 Long term (current) use of aspirin; Z79.899 Other long term (current) drug therapy; Z95.810 Presence of automatic (implantable) cardiac defibrillator
CPT/HCPCS: 26055; 29848; 71046; 93005; J0131; J0690; J1100; J1885; J2001; J2405; J2704; J3010; J7121

== ENCOUNTER 2024-10-11 08:58 | Outpatient (RCR) | payer MEDICARE, BC ==
[~2024-10-11 08:58] MED LIST changes: -ACETAMINOPHEN 1000 MG/100 ML 100 ML IV ONE; -DEXAMETHASONE SOD PHOS INJ 4 MG/ML SDV ONE; -FENTANYL CITRATE/PF 100MCG/2 ML INJ ONE; -KETOROLAC TROMETHAMINE 30 MG/ML VIAL ONE; -LACTATED RINGER'S 1,000 ML ONE; -LIDOCAINE HCL 2% LOCAL INJ 5 ML SDV VIAL INJ ONE; -ONDANSETRON HCL INJ 2MG/ML 2ML 2 MG/ML VIAL ONE; -PROPOFOL IV EMULSION 10 MG/ML 20 ML VIAL ONE; -SEVOFLURANE INHAL SOLN 250 ML PEN BTL ONE
== END 2024-10-16 ==
LOC: PT 08:58
PROVIDERS: ATTEND Otolaryngology
DX: H81.12 Benign paroxysmal vertigo, left ear (principal)

== ENCOUNTER 2024-10-24 17:00 | Outpatient (RCR) | payer MEDICARE, BC | END 2024-11-16 | LOC: PT 17:00 | PROVIDERS: ATTEND Otolaryngology | DX: H81.312 Aural vertigo, left ear (principal) ==